=== PATIENT | female | born 1955 | race Caucasian/White ===

== ENCOUNTER 2016-07-11 10:58 | Outpatient (CLI) | payer BC ==
--- NOTE | 2016-07-11 13:34 | DIAGNOSTIC IMAGING REPORT ---
PROCEDURE: MG BILATERAL SCREENING W/CAD INDICATION: SCREENING TECHNIQUE: Bilateral CC and MLO digital views. COMPARISON: Compared to 07/10/2015, 08/01/2014, and 07/27/2013. FINDINGS: Computer-aided detection applied. Moderately dense. Findings suggest development of an 8 mm ovoid nodular density in the medial right breast with partially obscured margins. IMPRESSION: 1. Findings suggest development of an 8 mm nodular density medial right breast. Consider underlying mass or cyst. Further mammographic views (true lateral view, CC and MLO spot compression views) are recommended. In addition, right breast ultrasound is recommended. RESULT CODE: 0- Incomplete; needs additional evaluation.. A. A negative report should not delay biopsy if a dominant or clinically suspicious mass is present. 10-15% of cancers are not identified by x-ray. B. A negative report may reinforce clinical impression. C. Adenosis and dense breasts may obscure an underlying neoplasm. D. False positive reports average 6-10%. E.. A yearly screening mammogram is recommended. A reminder letter will be scheduled.
== END 2016-07-11 23:00 | disposition home or self-care (01) ==
LOC: MAM SRH 10:58
DX: [UNRECOGNIZED DIAGNOSIS CODE] (principal)

== ENCOUNTER 2016-07-28 11:04 | Outpatient (CLI) | payer BC ==
--- NOTE | 2016-07-28 11:55 | DIAGNOSTIC IMAGING REPORT ---
PROCEDURE: MG UNILATERAL DIAG-RT W/CAD INDICATION: EVALUATE DENSITY SEEN ON SCREENING TECHNIQUE: Spot compression mammographic views of the right breast in the CC and MLO projection. A direct lateral right breast mammogram using CAD. The patient then went to ultrasound where arriola-scale and color Doppler sonographic imaging of the right breast was performed. COMPARISON: 07/11/2016, 07/10/2015, 08/01/2014 FINDINGS: Mammograms: With spot compression of the medial right breast, an 8.5 mm ovoid structure is seen on the CC view with a discrete smooth margins. No adjacent calcification or architectural distortion. It remains partially obscured on the MLO compression. Ultrasound: In the 4 o'clock position of the right breast, corresponding in location to the mammographic abnormality, a thin-walled ovoid anechoic structure measuring 0.8 x 0.5 x 0.3 cm is seen in the deep tissue adjacent to the chest wall. There is no suspicious peripheral or internal vascularity. There is increased through transmission. No suspicious shadowing. No solid abnormalities are seen in the region. IMPRESSION: 1. 8 mm simple cyst accounts for the mammographic abnormality. No suspicious features. 2. The patient can return to yearly screening mammography. Findings and recommendations were discussed with the patient. RESULT CODE: 2- Benign findings. A. A negative report should not delay biopsy if a dominant or clinically suspicious mass is present. 10-15% of cancers are not identified by x-ray. B. A negative report may reinforce clinical impression. C. Adenosis and dense breasts may obscure an underlying neoplasm. D. False positive reports average 6-10%. E.. A yearly screening mammogram is recommended. A reminder letter will be scheduled.
== END 2016-07-28 23:00 ==
LOC: MAM SRH 11:04
DX: Z12.31 Encounter for screening mammogram for malignant neoplasm of breast (principal)